=== PATIENT | male | born 1990 | race Caucasian/White ===

== ENCOUNTER 2020-04-28 00:44 | Emergency (ER) | payer MEDICAID, SELFPAY ==
[2020-04-28 00:45] VITALS: BP 149/94; PULSE 124; RESP 15; TEMP 37.2; O2SAT 96; BMI 24.7
--- NOTE | 2020-04-28 00:56 | RAD_ITS ---
STUDY: X-RAY - RIGHT HAND REASON FOR EXAM: Male, 29 years old. PUNCHED A WALL -- C/O PAIN IN 3RD-5TH MCP JOINTS RT HAND TECHNIQUE: 3 view(s) of the hand. COMPARISON: None. FINDINGS: Normal radiocarpal articulation. Normal distal radioulnar joint. Normal visualized carpal bones. Normal carpal articulations Normal carpometacarpal articulation of the thumb. Normal second through fifth carpometacarpal joints. There is an acute traumatic fracture of the neck of the distal fifth metacarpal with angulation convex posteromedially. Normal metacarpophalangeal joint of the thumb. Normal interphalangeal joint of the thumb. Normal proximal and distal phalanges of the thumb. Normal metacarpophalangeal joints of the second through fifth fingers. Normal proximal and distal interphalangeal joints of the second through fifth fingers. Normal phalanges of the second through fifth fingers. The soft tissue structures are unremarkable. RAD/Hand Min 3 Views IMPRESSION: Angulated fracture of the distal fifth metacarpal. Electronically Signed: Oleg Shipley MD at 1:47 EDT , Service support ,
--- NOTE | 2020-04-28 01:12 | ED.DCSUM_ITS ---
History of Present Illness Chief Complaint: Upper Extremity Injury Narrative: Patient punched a wall with his right hand. He denies any other injury, there is a small abrasion over his fourth knuckle however he is adamant that he did not punch the human being. He has no wrist pain elbow pain most of his pain is in the fourth and fifth metacarpal region. Past Medical History - Allergies and Home Meds Allergies/Adverse Reactions: Allergies No Known Allergies Allergy (Verified 04/28/20 00:50) Primary Care Physician: Maciej Zayas PA [PHYSICIAN TAPE RECORDING MACHINE OPERATOR] - Past Medical History: - - Prior hand fracture Smoking Status: Current every day smoker Review of Systems Musculoskeletal: Reports: - - Hand pain as in HPI Skin: Reports: Abrasions Neurological: Denies: Weakness, Parasthesia Hematologic: Denies: Easy bruising, Easy bleeding Physical Exam Vital Signs/Narrative: Vital Signs Temp Pulse Resp BP Pulse Ox 04/28/20 00:45 98.9 F 124 H 15 149/94 H 96 General: Well nourished, No Acute Distress ENT: Moist mucous membranes Cardiovascular: - - Initially slightly tachycardic Respiratory: No distress Extremities: - - He has tenderness and swelling over the fifth metacarpal distally. There is a small abrasion over the fourth knuckle. Normal strength and sensation. Skin: Normal color, - - Small abrasion as above Neurological: Normal Strength, Normal Sensation Diagnostic/Tx/Re-eval - Medical Decision Making Patient was found to have a boxer's fracture this was reduced and splinted by me. See procedure note. Patient will be referred to orthopedics. Procedures Procedure(s): Orthopedic procedures: 1. Hematoma block. 1% lidocaine was used, a 23-gauge needle was used to obtain a hematoma block in the fifth metacarpal region. Reasonable anesthetic results were achieved. 2. An Ortho- Glass ulnar gutter splint with flexion of 90 degrees at the MP joint was placed by me. Patient tolerated procedures well. ED Disposition - Plan for ED Patient: Disposition: Home or Assisted Living Diagnosis: Boxers fracture Instructions: ED Fx Boxer Prescriptions: Hydrocodone Bitart/Apap 5-325 [[place] 5MG-325MG] 1 tab PO Q4H PRN PRN 2 Days #10 tab PRN Reason: Pain Prescription Printed Referrals: Vicente Barnett MD [STAFF PHYSICIAN] - 3-5 Days
[2020-04-28 02:27] VITALS: BP 138/70; PULSE 89; RESP 16; O2SAT 98
== END 2020-04-28 02:28 | disposition home or self-care (01) ==
PROVIDERS: Emergency Provider Emergency Medicine
DX: S62.336A Displaced fracture of neck of fifth metacarpal bone, right hand, initial encounter for closed fracture (principal); W22.8XXA Striking against or struck by other objects, initial encounter; Y93.9 Activity, unspecified; Y92.9 Unspecified place or not applicable; F17.200 Nicotine dependence, unspecified, uncomplicated
CPT/HCPCS: 26605; 73130; 99282

== ENCOUNTER → 2020-05-09 08:08 | Outpatient (CLI) | payer SELFPAY ==
[2020-05-02 08:08] VITALS: BMI 24.7
--- NOTE | 2020-05-09 08:08 | RAD_ITS ---
STUDY: X-RAY - RIGHT HAND REASON FOR EXAM: Male, 29 years old. FX FOLLOW UP TECHNIQUE: 3 view(s) of the hand. COMPARISON: Comparison is made with prior study dated 04/28/2020. FINDINGS: Normal radiocarpal articulation. Normal distal radioulnar joint. Normal visualized carpal bones. Normal carpal articulations Normal carpometacarpal articulation of the thumb. Normal second through fifth carpometacarpal joints. Stable appearance of the boxer type fracture of the distal fifth metacarpal. Normal metacarpophalangeal joint of the thumb. Normal interphalangeal joint of the thumb. Normal proximal and distal phalanges of the thumb. Normal metacarpophalangeal joints of the second through fifth fingers. Normal proximal and distal interphalangeal joints of the second through fifth fingers. Normal phalanges of the second through fifth fingers. Mild soft tissue swelling. RAD/Hand Min 3 Views IMPRESSION: Stable appearance of the boxer type fracture involving the distal portion of the fifth metacarpal. Residual soft tissue swelling. Electronically Signed: Julio César Hicks, at 12:47 EDT , Service support ,
== END ==
LOC: HPRAD 08:08
PROVIDERS: Referring Provider Orthopaedic Surgery; Visit Provider Orthopaedic Surgery
DX: S62.339A Displaced fracture of neck of unspecified metacarpal bone, initial encounter for closed fracture (principal)
CPT/HCPCS: 73130